=== PATIENT | female | born 1955 | race Caucasian/White ===

== ENCOUNTER 2016-11-23 18:52 | Emergency (ER) | payer MEDICARE, BC ==
[~2016-11-23] VITALS: Ht 162.6 cm; Wt 62.6 kg
[2016-11-23] MEDS ORDERED: SODIUM CHLORIDE 0.9% 1,000 ML IV ONE (20:45)
[2016-11-23] MEDS ORDERED: PROMETHAZINE HCL 25 MG/ML 1ML IV ONE (20:45)
[2016-11-23 21:00] LABS: Urine Bilirubin Negative (Negative); Urine Blood Negative /uL (Negative); Urine Color Yellow (Yellow); Urine Glucose Normal (Normal); Urine Ketone 2+ (Negative); Urine Mucus FEW (None Seen); Urine Nitrite Negative (Negative); Urine RBC 1 /hpf (0 - 4); Urine Squamous Epithelial Cell FEW /hpf (<5); Urine Urobilinogen Normal (Negative)
[2016-11-23 21:05] LABS: Basophils # (auto) 0 uL; Basophils % (auto) 0.3 % (0.0-2.0); CONDITION Y; Eosinophils # (auto) 0 uL; Hematocrit 39.2 % (36.0-46.0); Hemoglobin 13.3 g/dL (12.2-16.2); Lymphocytes # (auto) 1.1 uL; Lymphocytes % (auto) 12.4 % (10.0-50.0); Mean Corpuscular Hemoglobin 31.7 pg (28.0-32.0); Mean Corpuscular Hgb Conc. 33.8 g/dL (32.0-36.0); Mean Corpuscular Volume 93.8 fL (80.0-100.0); Mean Platelet Volume 7.9 fL (7.4-10.4); Monocytes # (auto) 0.5 uL; Neutrophils # (auto) 7.5 uL; Neutrophils % (auto) 82.3 % (37.0-80.0); Platelet Count (auto) 309 10^3/uL (140-450); Red Cell Distribution Width 15.5 % (11.6-16.0); White Blood Cell 9.1 10^3/uL (4.4-10.8)
[2016-11-23 21:28] LABS: Anion Gap 11 (5-15); Aspartate Aminotransferase 16 U/L (15-37); BUN/Creatinine Ratio 40.6; Blood Urea Nitrogen 13 mg/dL (7-18); Calcium 8.6 mg/dL (8.5-10.1); Carbon Dioxide 22 mmol/L (21-32); Chloride 109 mmol/L (98-107); GFR African American 268 mL/min; GFR Non-African American 222 mL/min; Glucose 105 mg/dL (74-106); Potassium 3.2 mmol/L (3.5-5.1); Sodium 142 mmol/L (136-145)
[2016-11-23 21:33] LABS: Alkaline Phosphatase 75 U/L (45-117); Bilirubin, Total 0.5 mg/dL (0.2-1.0); Total Protein 7.2 g/dL (6.4-8.2)
[2016-11-23 21:35] LABS: B-Type Natriuretic Peptide 19.41 pg/mL (0-100)
[2016-11-23 22:30] LABS: Temperature: 23.5 C (20.0-25.0)
[2016-11-23] MEDS ORDERED: POTASSIUM CHL 20 Meq TABLET PO ONE (22:45)
[2016-11-24 05:47] VITALS: BP 133/69
== END 2016-11-24 06:14 | disposition home or self-care (01) ==
LOC: ER 19:07
DX: T50.905A Adverse effect of unspecified drugs, medicaments and biological substances, initial encounter (principal); R53.1 Weakness; E87.6 Hypokalemia; R06.02 Shortness of breath
CPT/HCPCS: 36415; 71010; 80053; 80307; 81001; 83735; 83880; 84484; 85025; 85379; 93005; 96361; 96374; 99285; J2550; J7030

== ENCOUNTER → 2021-10-11 | Emergency (ER) | payer MEDICARE, BC ==
[~2021-10-11] VITALS: Ht 162.6 cm; Wt 49.9 kg
[~2021-10-11] MED LIST: TETANUS-DIPTH-ACEL PERTUSSIS 0.5ML SYR Tdap IM ONE
[2021-10-11 18:02] VITALS: BP 135/63
== END | disposition home or self-care (01) ==
LOC: ER 18:05
DX: S01.81XA Laceration without foreign body of other part of head, initial encounter (principal); W01.0XXA Fall on same level from slipping, tripping and stumbling without subsequent striking against object, initial encounter; Y93.89 Activity, other specified; Y92.89 Other specified places as the place of occurrence of the external cause; Y99.8 Other external cause status
CPT/HCPCS: 12011; 70450; 70486